=== PATIENT | female | born 1965 | race Caucasian/White ===

== ENCOUNTER → 2016-04-18 | Outpatient (CLI) | payer OTHER, MEDICAID ==
[~2016-04-18] MED LIST: CITA-73 PO; CLON0.2T PO; FURO40TA PO; IBUP800T24 PO; LEVO150T10 PO; LIS5T GT; METO-169 PO; MULTTAB99 GT; NOR5T PO; QUET100T46 PO; SIMV-8; SPIR25TA89 PO
[2016-04-18 11:32] LABS: Basophils # (auto) 0.1 uL; Basophils % (auto) 0.9 % (0.0-2.0); Eosinophils # (auto) 0.3 uL; Eosinophils % (auto) 2.5 % (0.0-7.0); Hemoglobin 18.6 g/dL (12.2-16.2); Lymphocytes # (auto) 2.5 uL; Lymphocytes % (auto) 21.9 % (10.0-50.0); Mean Corpuscular Hemoglobin 31.9 pg (28.0-32.0); Mean Corpuscular Hgb Conc. 33.3 g/dL (32.0-36.0); Mean Corpuscular Volume 95.8 fL (80.0-100.0); Mean Platelet Volume 9.8 fL (7.4-10.4); Monocytes # (auto) 0.5 uL; Monocytes % (auto) 4.7 % (0.0-12.0); Platelet Count (auto) 188 10^3/uL (140-450); Red Cell Distribution Width 14.8 % (11.6-16.0); White Blood Cell 11.4 10^3/uL (4.4-10.8)
[2016-04-18 11:44] LABS: Albumin 3.1 g/dL (3.4-5.0); BUN/Creatinine Ratio 15.2; Bilirubin, Total 0.4 mg/dL (0.2-1.0); Calcium 9.1 mg/dL (8.5-10.1); Potassium 3.8 mmol/L (3.5-5.1); Total Protein 7.6 g/dL (6.4-8.2)
[2016-04-18 12:31] LABS: Urine Bilirubin Negative (Negative); Urine Blood Negative /uL (Negative); Urine Color Yellow (Yellow); Urine Glucose Normal (Normal); Urine Ketone Negative (Negative); Urine Nitrite Negative (Negative); Urine RBC 1 /hpf (0 - 4); Urine Squamous Epithelial Cell FEW /hpf (<5); Urine Urobilinogen Normal (Negative); Urine pH 6.5 (5.0-8.0)
== END | disposition home or self-care (01) ==
LOC: LAB 10:27
PROVIDERS: ATTEND Internal Medicine
DX: Z00.00 Encounter for general adult medical examination without abnormal findings (principal)
CPT/HCPCS: 36415; 80053; 80061; 81001; 83001; 83002; 83036; 84443; 85025; G0434

== ENCOUNTER → 2016-10-05 | Outpatient (CLI) | payer OTHER, MEDICAID ==
[~2016-10-05] MED LIST changes: +HYDR-4663 PO; -NOR5T PO
== END | disposition home or self-care (01) ==
LOC: XY 11:11
PROVIDERS: ATTEND Internal Medicine
DX: M71.22 Synovial cyst of popliteal space [Baker], left knee (principal); M71.21 Synovial cyst of popliteal space [Baker], right knee; R53.1 Weakness
CPT/HCPCS: 93923; 93925

== ENCOUNTER → 2016-10-18 | Outpatient (CLI) | payer OTHER, MEDICAID ==
[2016-10-18 10:42] LABS: Basophils # (auto) 0.1 uL; Basophils % (auto) 0.9 % (0.0-2.0); CONDITION Y; Eosinophils # (auto) 0.3 uL; Eosinophils % (auto) 3.6 % (0.0-7.0); Hematocrit 50.7 % (36.0-46.0); Hemoglobin 17.1 g/dL (12.2-16.2); Lymphocytes # (auto) 2.6 uL; Lymphocytes % (auto) 28.9 % (10.0-50.0); Mean Corpuscular Hemoglobin 32.2 pg (28.0-32.0); Mean Corpuscular Hgb Conc. 33.8 g/dL (32.0-36.0); Mean Corpuscular Volume 95.5 fL (80.0-100.0); Mean Platelet Volume 9.8 fL (7.4-10.4); Monocytes # (auto) 0.6 uL; Monocytes % (auto) 6.2 % (0.0-12.0); Neutrophils # (auto) 5.5 uL; Neutrophils % (auto) 60.4 % (37.0-80.0); Platelet Count (auto) 211 10^3/uL (140-450); Red Cell Distribution Width 16.3 % (11.6-16.0); White Blood Cell 9.1 10^3/uL (4.4-10.8)
[2016-10-18 11:11] LABS: BUN/Creatinine Ratio 16.9; Bilirubin, Total 0.4 mg/dL (0.2-1.0); Calcium 9.2 mg/dL (8.5-10.1); Potassium 3.8 mmol/L (3.5-5.1); Total Protein 7.1 g/dL (6.4-8.2)
== END | disposition home or self-care (01) ==
LOC: LAB 10:01
PROVIDERS: ATTEND Internal Medicine
DX: Z00.00 Encounter for general adult medical examination without abnormal findings (principal); I10 Essential (primary) hypertension; E78.2 Mixed hyperlipidemia
CPT/HCPCS: 36415; 80053; 80061; 83036; 84439; 84443; 84481; 85025

== ENCOUNTER → 2016-11-07 | Outpatient (CLI) | payer OTHER, MEDICAID | END | disposition home or self-care (01) | LOC: LAB 09:55 | PROVIDERS: ATTEND Internal Medicine | DX: I73.9 Peripheral vascular disease, unspecified (principal) | CPT/HCPCS: 36415; 82565; 84520 ==

== ENCOUNTER 2016-11-24 13:47 | Emergency (ER) | payer OTHER ==
[~2016-11-24] VITALS: Ht 167.6 cm; Wt 186.4 kg
[2016-11-24] MEDS ORDERED: ONDANSETRON HCL 4 MG/2 ML VIAL IM ONE (16:45)
[2016-11-24] MEDS ORDERED: HYDROmorphone HCL 2 MG/ML VL IM ONE (16:45)
[2016-11-24] MEDS ORDERED: METHOCARBAMOL 500 MG TAB PO ONE (16:45)
[2016-11-24] MEDS ORDERED: cloNIDine HCL 0.1 MG TAB PO ONE (17:15)
[2016-11-24] MEDS ORDERED: hydrALAZINE HCL 20 MG/ML VL IV ONE (18:00)
[2016-11-24 19:45] VITALS: BP 155/81
== END 2016-11-24 20:14 | disposition home or self-care (01) ==
LOC: ER 13:48
DX: G89.29 Other chronic pain (principal); M54.5 Low back pain; M47.816 Spondylosis without myelopathy or radiculopathy, lumbar region; Z79.899 Other long term (current) drug therapy; I50.9 Heart failure, unspecified; E78.5 Hyperlipidemia, unspecified; I11.0 Hypertensive heart disease with heart failure; E07.9 Disorder of thyroid, unspecified; Z90.710 Acquired absence of both cervix and uterus; Z90.49 Acquired absence of other specified parts of digestive tract; F17.210 Nicotine dependence, cigarettes, uncomplicated; E66.9 Obesity, unspecified; Z68.44 Body mass index [BMI] 60.0-69.9, adult
CPT/HCPCS: 72131; 96372; 99284; J1170; J2405

== ENCOUNTER 2016-12-03 12:15 | Emergency (ER) | payer OTHER, MEDICAID ==
[~2016-12-03] VITALS: Ht 167.6 cm; Wt 186.4 kg
[2016-12-03] MEDS ORDERED: SODIUM CHLORIDE 0.9% 1,000 ML IV ONE (15:18)
[2016-12-03] MEDS ORDERED: DEXAMETHASONE SOD PHOS 4 MG/1ML SDV INJ IV ONE (15:30)
[2016-12-03] MEDS ORDERED: KETOROLAC TROMETH 30 MG/ML 1ML VIAL IV ONE (15:30)
[2016-12-03] MEDS ORDERED: PROMETHAZINE HCL 25 MG/ML 1ML IV ONE (15:30)
[2016-12-03 15:50] LABS: Basophils # (auto) 0.1 uL; Basophils % (auto) 0.8 % (0.0-2.0); CONDITION Y; Eosinophils # (auto) 0.3 uL; Eosinophils % (auto) 3.5 % (0.0-7.0); Hematocrit 51.4 % (36.0-46.0); Hemoglobin 17.1 g/dL (12.2-16.2); Lymphocytes # (auto) 2.2 uL; Lymphocytes % (auto) 24.8 % (10.0-50.0); Mean Corpuscular Hemoglobin 32.6 pg (28.0-32.0); Mean Corpuscular Hgb Conc. 33.3 g/dL (32.0-36.0); Mean Corpuscular Volume 97.9 fL (80.0-100.0); Monocytes # (auto) 0.5 uL; Monocytes % (auto) 5.3 % (0.0-12.0); Neutrophils # (auto) 5.8 uL; Neutrophils % (auto) 65.6 % (37.0-80.0); Platelet Count (auto) 187 10^3/uL (140-450); Red Cell Distribution Width 16.8 % (11.6-16.0); White Blood Cell 8.9 10^3/uL (4.4-10.8)
[2016-12-03 16:01] LABS: BUN/Creatinine Ratio 7.3; Calcium 8.7 mg/dL (8.5-10.1); Magnesium 2.5 mg/dL (1.6-2.6); Potassium 4.2 mmol/L (3.5-5.1)
[2016-12-03] MEDS: LABETALOL HCL 5 MG/ML ML 20ML VIAL IV ONE ×2 (16:05→16:32)
[2016-12-03 17:19] VITALS: BP 149/99
== END 2016-12-03 19:03 | disposition home or self-care (01) ==
LOC: ER 12:15
DX: M51.36 Other intervertebral disc degeneration, lumbar region (principal); M54.5 Low back pain; G89.29 Other chronic pain; E66.01 Morbid (severe) obesity due to excess calories; I13.0 Hypertensive heart and chronic kidney disease with heart failure and stage 1 through stage 4 chronic kidney disease, or unspecified chronic kidney disease; N18.9 Chronic kidney disease, unspecified; I50.9 Heart failure, unspecified; E78.5 Hyperlipidemia, unspecified; I25.2 Old myocardial infarction; Z68.44 Body mass index [BMI] 60.0-69.9, adult; Z86.73 Personal history of transient ischemic attack (TIA), and cerebral infarction without residual deficits; F17.210 Nicotine dependence, cigarettes, uncomplicated; Z85.41 Personal history of malignant neoplasm of cervix uteri
CPT/HCPCS: 36415; 80048; 83735; 85025; 96361; 96374; 96375; 99284; J1100; J1885; J2550; J7030

== ENCOUNTER 2016-12-17 19:54 | Emergency (ER) | payer OTHER, MEDICAID ==
[~2016-12-17] VITALS: Ht 167.6 cm; Wt 186.4 kg
[2016-12-17 20:14] VITALS: BP 227/133
[2016-12-17] MEDS ORDERED: cloNIDine HCL 0.1 MG TAB PO ONE (20:30)
[2016-12-17 20:36] LABS: Urine Bilirubin Negative (Negative); Urine Blood Negative /uL (Negative); Urine Color Yellow (Yellow); Urine Glucose Normal (Normal); Urine Ketone Negative (Negative); Urine Mucus FEW (None Seen); Urine Nitrite Negative (Negative); Urine RBC 1 /hpf (0 - 4); Urine Squamous Epithelial Cell FEW /hpf (<5); Urine pH 6.5 (5.0-8.0)
== END 2016-12-17 20:25 | disposition left against medical advice (07) ==
LOC: ER 19:57
DX: M54.9 Dorsalgia, unspecified (principal); Z53.21 Procedure and treatment not carried out due to patient leaving prior to being seen by health care provider
CPT/HCPCS: 81001

== ENCOUNTER 2018-01-26 16:30 | Inpatient (IN) | payer OTHER, MEDICAID ==
[~2018-01-26] VITALS: Ht 167.6 cm; Wt 156.7 kg
[~2018-01-26 16:30] MED LIST changes: -HYDR-4663 PO; +HYDR-4683 PO; +SPIR25TA8 PO; -SPIR25TA89 PO
[2018-01-26 17:22] LABS: Basophils # (auto) 0.1 uL; Basophils % (auto) 0.7 % (0.0-2.0); Eosinophils # (auto) 0.2 uL; Lymphocytes # (auto) 1.1 uL; Neutrophils % (auto) 85.9 % (37.0-80.0); Platelet Count (auto) 163 10^3/uL (140-450)
[2018-01-26 17:23] LABS: Eosinophils % (auto) 1.5 % (0.0-7.0); Hematocrit 50.7 % (36.0-46.0); Hemoglobin 17.8 g/dL (12.2-16.2); Lymphocytes % (auto) 8.4 % (10.0-50.0); Mean Corpuscular Hemoglobin 33.5 pg (28.0-32.0); Mean Corpuscular Hgb Conc. 35.1 g/dL (32.0-36.0); Mean Corpuscular Volume 95.5 fL (80.0-100.0); Monocytes # (auto) 0.4 uL; Monocytes % (auto) 3.5 % (0.0-12.0); Nucleated Red Blood Cells % 0.1 %; Red Blood Cells 5.31 10^6/uL (4.0-5.20); Red Cell Distribution Width 15.3 % (11.8-14.3); White Blood Cell 12.8 10^3/uL (4.4-10.8)
[2018-01-26 17:37] LABS: Albumin 3.2 g/dL (3.4-5.0); Calcium 9.1 mg/dL (8.5-10.1)
[2018-01-26 17:39] LABS: BUN/Creatinine Ratio 13.7; Bilirubin, Total 0.9 mg/dL (0.2-1.0); Total Protein 7.9 g/dL (6.4-8.2)
[2018-01-26 18:36] LABS: INR 0.94 (0.9-1.15); Partial Thromboplastin Time 25.8 sec (23.78-33.04); Prothrombin Time 10.1 sec (9.27-12.13)
[2018-01-27] VITALS (7 sets, daily range): BP systolic 103–162; BP diastolic 54–79
[2018-01-27] MEDS ORDERED: ONDANSETRON HCL 4 MG/2 ML VIAL IV PRN (04:45)
[2018-01-27] MEDS ORDERED: MORPHINE SULFATE 4 MG/ML SYR/VIAL IV PRN (04:45)
[2018-01-27] MEDS ORDERED: DOCUSATE SOD 100 MG CAP PO PRN (04:45)
[2018-01-27] MEDS ORDERED: TEMAZEPAM 15 MG CAP PO PRN (04:45)
[2018-01-27] MEDS ORDERED: NITROGLYCERIN 0.4 MG SL TAB SL PRN (04:45)
[2018-01-27] MEDS: LEVOTHYROXINE SODIUM 50 MCG TAB PO SCH (06:50)
[2018-01-27] MEDS: HYDROcodone-ACET 5/325MG TAB PO PRN ×4 (06:51→21:04)
[2018-01-27] MEDS: cloNIDine HCL 0.1 MG TAB PO SCH ×3 (06:52→21:04)
[2018-01-27] MEDS ORDERED: CLOP75TA41 PO (07:12)
[2018-01-27] MEDS ORDERED: LISI40TA PO (07:12)
[2018-01-27] MEDS ORDERED: HYDR-4296 PO (07:12)
[2018-01-27] MEDS ORDERED: LEVO200T46 PO (07:12)
[2018-01-27] MEDS ORDERED: METO-159 PO (07:12)
[2018-01-27] MEDS ORDERED: SIMV-13 PO (07:12)
[2018-01-27] MEDS ORDERED: cefTRIAXone 1GM/10ml IVPUSH 10 ML IV SCH (09:00)
[2018-01-27] MEDS ORDERED: CITALOPRAM HYDROBR 20 MG TAB PO SCH (10:00)
[2018-01-27] MEDS: ASPirin 81 mg TAB PO SCH (10:10)
[2018-01-27] MEDS: METOPROLOL SUCCINATE XL 50 MG TAB PO SCH (10:11)
[2018-01-27] MEDS: FAMOTIDINE 20 MG TAB PO SCH ×2 (10:11→21:04)
[2018-01-27] MEDS: SOD CHL 0.45% 1,000 ML IV SCH ×2 (10:13→17:45)
[2018-01-27] MEDS: LISINOPRIL 5 MG TAB PO SCH (10:17)
[2018-01-27 11:48] LABS: Urine Bacteria MOD /hpf (None Seen); Urine Blood TRACE /uL (Negative); Urine Hyaline Cast MOD /lpf (0 - 2); Urine WBC 717 /hpf (0 - 5); Urine WBC Clumps PRESENT /hpf (None Seen)
[2018-01-27] MEDS: ATORVASTATIN 20 MG TAB PO SCH (21:04)
[2018-01-27] MEDS: QUEtiapine FUMARATE 100 MG TAB PO SCH (22:33)
[2018-01-28] VITALS (8 sets, daily range): BP systolic 113–155; BP diastolic 58–78
[2018-01-28] MEDS: SOD CHL 0.45% 1,000 ML IV SCH ×3 (02:03→21:23)
[2018-01-28] MEDS: HYDROcodone-ACET 5/325MG TAB PO PRN ×2 (02:29→13:29)
[2018-01-28] MEDS: ACETAMINOPHEN 325 MG TAB PO PRN ×2 (04:20→21:37)
[2018-01-28] MEDS ORDERED: ALBUTEROL SULF 2.5 MG/0.5ML(0.5%) NEB SOLN NEB PRN (04:45)
[2018-01-28 05:18] LABS: Basophils # (auto) 0.1 uL; Basophils % (auto) 0.6 % (0.0-2.0); Eosinophils # (auto) 0 uL; Eosinophils % (auto) 0.1 % (0.0-7.0); Hematocrit 43.7 % (36.0-46.0); Hemoglobin 15.2 g/dL (12.2-16.2); Lymphocytes # (auto) 0.4 uL; Lymphocytes % (auto) 3.5 % (10.0-50.0); Mean Corpuscular Hemoglobin 33.3 pg (28.0-32.0); Mean Corpuscular Hgb Conc. 34.9 g/dL (32.0-36.0); Mean Corpuscular Volume 95.6 fL (80.0-100.0); Monocytes # (auto) 0.8 uL; Monocytes % (auto) 6.9 % (0.0-12.0); Neutrophils # (auto) 10.9 uL; Neutrophils % (auto) 88.9 % (37.0-80.0); Platelet Count (auto) 96 10^3/uL (140-450); Red Blood Cells 4.57 10^6/uL (4.0-5.20); Red Cell Distribution Width 15.3 % (11.8-14.3); White Blood Cell 12.2 10^3/uL (4.4-10.8)
[2018-01-28 05:33] LABS: Albumin 2.6 g/dL (3.4-5.0); BUN/Creatinine Ratio 17.5; Calcium 8.6 mg/dL (8.5-10.1); Potassium 3.9 mmol/L (3.5-5.1)
[2018-01-28 05:35] LABS: Bilirubin, Total 1.4 mg/dL (0.2-1.0)
[2018-01-28] MEDS: cloNIDine HCL 0.1 MG TAB PO SCH ×3 (06:35→21:23)
[2018-01-28] MEDS: LEVOTHYROXINE SODIUM 50 MCG TAB PO SCH (06:35)
[2018-01-28] MEDS ORDERED: ADENOSINE 57 MG in GIVE UN-DILUTED 0 ML IV ONE (08:15)
[2018-01-28] MEDS: METOPROLOL SUCCINATE XL 50 MG TAB PO SCH (10:00)
[2018-01-28] MEDS: FAMOTIDINE 20 MG TAB PO SCH ×2 (10:11→21:22)
[2018-01-28] MEDS: ASPirin 81 mg TAB PO SCH (10:12)
[2018-01-28] MEDS: LISINOPRIL 5 MG TAB PO SCH (10:12)
[2018-01-28] MEDS: MEROPENEM 1GM IVPB 100 ML IV SCH ×2 (14:00→21:21)
[2018-01-28] MEDS ORDERED: MANNITOL FTV 25% 12.5 GM/50 ML 50 ML IV ONE (16:45)
[2018-01-28] MEDS: QUEtiapine FUMARATE 100 MG TAB PO SCH (21:22)
[2018-01-28] MEDS: ATORVASTATIN 20 MG TAB PO SCH (21:22)
[2018-01-28] MEDS ORDERED: CITALOPRAM HYDROBR 20 MG TAB PO SCH (22:00)
[2018-01-29] MEDS: SOD CHL 0.45% 1,000 ML IV SCH ×2 (01:45→10:28)
[2018-01-29] MEDS: HYDROcodone-ACET 5/325MG TAB PO PRN ×2 (02:12→06:39)
[2018-01-29 05:30] VITALS: BP 146/74
[2018-01-29] MEDS: cloNIDine HCL 0.1 MG TAB PO SCH ×2 (06:22→14:22)
[2018-01-29] MEDS: MEROPENEM 1GM IVPB 100 ML IV SCH ×2 (06:23→14:22)
[2018-01-29] MEDS: LEVOTHYROXINE SODIUM 50 MCG TAB PO SCH (06:23)
[2018-01-29 08:06] VITALS: BP 150/80
[2018-01-29 08:27] VITALS: BP 152/86
[2018-01-29] MEDS: LISINOPRIL 5 MG TAB PO SCH (10:25)
[2018-01-29] MEDS: FAMOTIDINE 20 MG TAB PO SCH (10:26)
[2018-01-29] MEDS: METOPROLOL SUCCINATE XL 50 MG TAB PO SCH (10:26)
[2018-01-29] MEDS: ASPirin 81 mg TAB PO SCH (10:26)
[2018-01-29 10:46] LABS: Basophils # (auto) 0 uL; Basophils % (auto) 0.5 % (0.0-2.0); Eosinophils # (auto) 0.1 uL; Eosinophils % (auto) 1.9 % (0.0-7.0); Hematocrit 42.2 % (36.0-46.0); Hemoglobin 14.4 g/dL (12.2-16.2); Lymphocytes # (auto) 0.5 uL; Lymphocytes % (auto) 8.1 % (10.0-50.0); Mean Corpuscular Hemoglobin 32.5 pg (28.0-32.0); Mean Corpuscular Hgb Conc. 34.3 g/dL (32.0-36.0); Mean Corpuscular Volume 94.7 fL (80.0-100.0); Monocytes # (auto) 0.5 uL; Monocytes % (auto) 8.1 % (0.0-12.0); Neutrophils # (auto) 5.1 uL; Neutrophils % (auto) 81.4 % (37.0-80.0); Nucleated Red Blood Cells % 0.1 %; Platelet Count (auto) 93 10^3/uL (140-450); Red Blood Cells 4.45 10^6/uL (4.0-5.20); Red Cell Distribution Width 15.1 % (11.8-14.3); White Blood Cell 6.2 10^3/uL (4.4-10.8)
[2018-01-29 11:06] LABS: BUN/Creatinine Ratio 21.8; Calcium 8.7 mg/dL (8.5-10.1); Potassium 3.7 mmol/L (3.5-5.1)
[2018-01-29] MEDS ORDERED: CIPR-217 PO (11:47)
[2018-01-29 12:46] VITALS: BP 160/72
== END 2018-01-29 16:28 | disposition home or self-care (01) | DRG 871 ==
LOC: EDBD 16:30 → ER 16:30 → TELE 16:31 → TELE-CENTR 01-27 06:00
PROVIDERS: ADMIT Nurse Practitioner; ATTEND Internal Medicine
DX: A41.9 Sepsis, unspecified organism (principal); I21.4 Non-ST elevation (NSTEMI) myocardial infarction; N17.0 Acute kidney failure with tubular necrosis; E44.1 Mild protein-calorie malnutrition; Z68.43 Body mass index [BMI] 50.0-59.9, adult; I13.0 Hypertensive heart and chronic kidney disease with heart failure and stage 1 through stage 4 chronic kidney disease, or unspecified chronic kidney disease; N13.6 Pyonephrosis; E66.01 Morbid (severe) obesity due to excess calories; F17.210 Nicotine dependence, cigarettes, uncomplicated; I70.90 Unspecified atherosclerosis; I25.10 Atherosclerotic heart disease of native coronary artery without angina pectoris; I50.9 Heart failure, unspecified; K42.9 Umbilical hernia without obstruction or gangrene; N18.3 Chronic kidney disease, stage 3 (moderate); F32.9 Major depressive disorder, single episode, unspecified; F41.9 Anxiety disorder, unspecified; Z79.899 Other long term (current) drug therapy; Z82.49 Family history of ischemic heart disease and other diseases of the circulatory system; Z86.73 Personal history of transient ischemic attack (TIA), and cerebral infarction without residual deficits; Z90.49 Acquired absence of other specified parts of digestive tract; Z90.710 Acquired absence of both cervix and uterus; Z91.5 Personal history of self-harm
CPT/HCPCS: 36415; 71045; 74176; 78452; 80048; 80053; 81001; 82550; 82553; 83690; 83735; 84484; 85025; 85610; 85730; 87040; 87077; 87086; 87186; 93005; 93017; 93306; 94761; 96365; 96375; J0153; J0696; J2185

== ENCOUNTER 2018-03-18 15:53 | Emergency (ER) | payer OTHER, MEDICAID ==
[~2018-03-18] VITALS: Ht 167.6 cm; Wt 149.7 kg
[~2018-03-18 15:53] MED LIST changes: +CIPR-217 PO; +CLOP75TA41 PO; +HYDR-4296 PO; -IBUP800T24 PO; -LEVO150T10 PO; +LEVO200T46 PO; -LIS5T GT; +LISI40TA PO; +METO-159 PO; -METO-169 PO; -MULTTAB99 GT; +SIMV-13 PO; -SIMV-8; -SPIR25TA8 PO
[2018-03-18] MEDS ORDERED: HYDROcodone-ACET 10/325MG TAB PO ONE (16:45)
[2018-03-18 19:00] VITALS: BP 136/92
== END 2018-03-18 20:10 | disposition home or self-care (01) ==
LOC: EDUNIT# 15:53 → EDBD 15:53 → ER 15:58
DX: S70.01XA Contusion of right hip, initial encounter (principal); I11.0 Hypertensive heart disease with heart failure; I50.9 Heart failure, unspecified; E07.89 Other specified disorders of thyroid; F17.210 Nicotine dependence, cigarettes, uncomplicated; Z90.49 Acquired absence of other specified parts of digestive tract; Z90.710 Acquired absence of both cervix and uterus; Z79.899 Other long term (current) drug therapy; W19.XXXA Unspecified fall, initial encounter; Y93.89 Activity, other specified; Y99.8 Other external cause status; Y92.89 Other specified places as the place of occurrence of the external cause
CPT/HCPCS: 73502

== ENCOUNTER → 2020-01-21 | Outpatient (CLI) | payer OTHER, MEDICAID ==
[~2020-01-21] MED LIST changes: -CIPR-217 PO; +CIPR500T4 PO; +FURO1TAB31 PO; -FURO40TA PO; -HYDR-4683 PO; +HYDR-4833 PO; -LISI40TA PO; +LISI40TA11 PO
[2020-01-21 10:29] LABS: Basophils # (auto) 0.1 10 ^3/uL (0-0.2); Basophils % (auto) 1.7 % (0.0-2.0); Eosinophils # (auto) 0.2 10 ^3/uL (0-0.8); Eosinophils % (auto) 3.2 % (0.0-7.0); Hematocrit 42.8 % (36.0-46.0); Hemoglobin 14.2 g/dL (12.2-16.2); Lymphocytes # (auto) 1.4 10 ^3/uL (0.4-5.4); Lymphocytes % (auto) 18.3 % (10.0-50.0); Mean Corpuscular Hemoglobin 30.2 pg (28.0-32.0); Mean Corpuscular Hgb Conc. 33.2 g/dL (32.0-36.0); Monocytes # (auto) 0.6 10 ^3/uL (0-1.3); Monocytes % (auto) 7.1 % (0.0-12.0); Neutrophils # (auto) 5.5 10 ^3/uL (1.6-8.6); Neutrophils % (auto) 69.7 % (37.0-80.0); Nucleated Red Blood Cells % 0.1 %; Platelet Count (auto) 224 10^3/uL (140-450); Red Cell Distribution Width 14.4 % (11.8-14.3); White Blood Cell 7.8 10^3/uL (4.4-10.8)
[2020-01-21 11:00] LABS: Albumin 3.1 g/dL (3.4-5.0); Calcium 9.2 mg/dL (8.5-10.1)
[2020-01-21 11:05] LABS: BUN/Creatinine Ratio 14.4; Bilirubin, Total 0.4 mg/dL (0.2-1.0); Total Protein 7.8 g/dL (6.4-8.2)
== END | disposition home or self-care (01) ==
LOC: LAB 10:17
PROVIDERS: ATTEND Physician Assistant
DX: N20.0 Calculus of kidney (principal); N18.30 Chronic kidney disease, stage 3 unspecified; I50.9 Heart failure, unspecified; J44.9 Chronic obstructive pulmonary disease, unspecified
CPT/HCPCS: 36415; 80053; 80061; 85025